=== PATIENT | female | born 1980 | race American Indian/Alaskan Native ===

== ENCOUNTER 2017-12-26 11:32 | Outpatient (CLI) | payer MEDICAID ==
--- NOTE | 2017-12-26 14:15 | Mammography Report ---
BILATERAL DIGITAL DIAGNOSTIC MAMMOGRAM with CAD and LEFT BREAST ULTRASOUND: 12/26/17 11:41:00 CLINICAL: 37 year-old with a palpable left breast lump. COMPARISON:None. These are baseline studies. FINDINGS: The breasts are heterogeneously dense, which may obscure small masses.A left lower and are oval circumscribed 2.5 cm mass correlates with the palpable lump.No other mass, architectural distortion or suspicious calcifications . Ultrasound of the left breast demonstrated an oval smooth isoechoic mass at 8 o'clock 9 cm from the nipple. It measures 2.1 x 0.8 x 1.3 cm and correlates with the mammographic mass. IMPRESSION: A probably benign 2.1 cm left breast mass at 8 o'clock 9 cm from the nipple. BI-RADS CATEGORY: 3--Probably Benign RECOMMENDATION: Six month followup left breast ultrasound to reevaluate the mass for stability in size. ACR BI-RADS MAMMOGRAPHIC CODES: 0 = Needs additional imaging evaluation; 1 = Negative; 2 = Benign; 3 = Probably benign; 4 = Suspicious; 5 = Malignant; 6 = Known biopsy-proven malignancy COMMENT: 1. Dense breast tissue, i.e., adenosis, fibrocystic changes, etc., may obscure an underlying neoplasm. 2. Approximately 10% of cancers are not detected with mammography. 3. A negative mammography report should not delay biopsy if a clinically suspicious mass is present. COMMENT: Patient follow-up letters are generated by our [employer] application.
== END 2017-12-26 11:33 | disposition home or self-care (01) ==
LOC: US 11:32
PROVIDERS: ATTEND Obstetrics & Gynecology
DX: R92.8 Other abnormal and inconclusive findings on diagnostic imaging of breast (principal)
CPT/HCPCS: 77066